=== PATIENT | female | born 1950 | race Caucasian/White ===

== ENCOUNTER 2016-08-05 12:11 | Observation (INO) ==
--- NOTE | 2016-08-05 12:24 | Emergency Department Note ---
Disposition Clinical Impression: Chest pain Qualifiers: Chest pain type: unspecified Qualified Code(s): R07.9 - Chest pain, unspecified Disposition: Admitted As Inpatient Condition: Good Referrals: Francia Diamond CNP [Primary Care Provider] - Forms: ED Satisfaction Letter Time of Disposition: 13:45 Chest Pain HPI - General Chief Complaint: ED Chest Pain Stated Complaint: chest pain// jaw pain Time Seen by Provider: 08/05/16 12:14 Source: patient Mode of arrival: wheelchair Limitations: no limitations Vital Signs Reviewed: Yes Nursing Notes Reviewed: Yes - History of Present Illness HPI Narrative: 66-year-old female history of hypertrophic cardiomyopathy with pacemaker/ defibrillator presents with right side jaw pain with associated chest pain. This occurred at [address]. Dull sensation in the right jaw that moved to the midsternum chest. Pain resolved after 15 minutes spontaneously. Patient is currently chest pain free. Denies any associated diaphoresis, shortness of breath, nausea or vomiting. She does have a history of this last over one year ago. At that time it was diagnosed as refluxing she was given Zantac. She denies any recent fever, recent illness, cough, abdominal pain. She has a strong family history of cardiac ischemic disease including her mother at the age of 30. Her bonding molder is stationed at [facility] Dr. Alejandro. Her most recent stress and heart catheterization has been over one year ago. She reports extensive cardiac history including pacemaker lead fractures, symptomatic bradycardia, symptomatic tachycardia, and various episodes of chest pain. She is a former smoker. Denies hypertension, diabetes, or hyperlipidemia. Severity scale (1-10): 0 - Related Data Home Medications Medication Instructions Recorded Confirmed Celebrex 10/26/14 10/26/14 Cyclobenzaprine 10/26/14 10/26/14 Ocuvite Eye + Multi Tablet 10/26/14 10/26/14 Verapamil 10/26/14 10/26/14 Previous Rx's Medication Instructions Recorded predniSONE [Prednisone] 20 mg PO DAILY #22 tablet 10/26/14 Allergies Allergy/AdvReac Type Severity Reaction Status Date / Time sulfamethoxazole Allergy Rash Verified 10/26/14 11:42 [From Bactrim] trimethoprim [From Bactrim] Allergy Rash Verified 10/26/14 11:42 All systems ED: reviewed and negative except as stated. Constitutional: Denies: fever, chills ENT ED: Reports: other (Right jaw) Cardiovascular: Reports: chest pain Respiratory: Denies: cough, dyspnea Gastrointestinal: Denies: abdominal pain, nausea, vomiting Genitourinary: Denies: urgency, dysuria Musculoskeletal: Denies: back pain, neck pain Integumentary: Denies: rash, abrasion Neurological: Denies: headache Chest Pain PMH - Past Medical History Medical history: Reports: cardiomyopathy, GERD, other Psychiatric history: Reports: no psych history RADIOLOGY TECH history: Reports: bilateral tubal ligation - Social History Smoking Status: Former smoker Alcohol use: Reports: none Drug use: Reports: none Physical Exam - General Limitations: no limitations General appearance: alert, in no apparent distress - Head Head exam: atraumatic, normocephalic, normal inspection - Eye Eye exam: Present: normal appearance, PERRL, EOMI - ENT ENT exam: normal exam, normal oropharynx, mucous membranes moist - Neck Neck exam: Present: normal inspection, full ROM, trachea midline. Absent: tenderness - Chest Chest inspection: Present: normal inspection, symmetric chest wall rise, other ( PACEMAKER IN LEFT CHEST WALL WITH INCISIONAL SCAR). Absent: tenderness - Respiratory Respiratory exam: Present: normal lung sounds bilaterally. Absent: respiratory distress, wheezes - Cardiovascular Cardiovascular exam: Present: regular rate, normal rhythm, normal heart sounds - Abdominal Exam Abdominal exam: Present: soft, Non-Tender, normal bowel sounds. Absent: tenderness, distention, guarding, rebound, rigidity - Extremities Exam Extremities exam: Present: normal inspection, full ROM, normal capillary refill. Absent: tenderness, pedal edema, calf tenderness - Back Exam Back exam: Present: normal inspection, full ROM. Absent: tenderness, CVA tenderness (R), CVA tenderness (L), vertebral tenderness - Neurological Exam Neurological exam: Present: alert, oriented X3, normal gait - Psychiatric Psychiatric exam: Present: normal affect, normal mood - Skin Skin exam: Present: warm, dry, intact, normal color Course Course Narrative: 66-year-old female presents with chest pain and jaw pain. Patients currently asymptomatic at this time. She does have a significant cardiac history involving her family surrounding hypertrophic cardiomyopathy. Her vital signs are stable. Heart is regular rate and rhythm. EKG is paste without any acute changes. Will get a chest pain workup started. Full dose aspirin given. Patient is in agreement with this plan. Disposition pending workup. - Reevaluation(s) Reevaluation #1: Labs unremarkable. Troponin 0.01. EKG is stable without any acute changes. Chest x-ray is unremarkable. HEART is 4. Discussed with the patient for observation for her symptoms today, she is appropriate for admission. Patient remains free at this time. Discussed with the patient for possible transfer to [place] as her bonding molder and EP bonding molder are located there. She wishes to remain here at [facility] for further treatment and management. Impression is chest pain R/O ACS with history of HOCM. Time: 13:43 - Consultations Consultation #1: Spoke with on-call hospitalist aurelio Wagoner to admit for chest pain R/O ACS, history of HOCM. No further orders at this time Time: 14:06 Vital Signs Temperature 98.1 F 08/05/16 12:14 Pulse Rate 67 08/05/16 12:14 Respiratory Rate 18 08/05/16 12:14 Blood Pressure 127/70 08/05/16 12:14 O2 Sat by Pulse Oximetry 100 08/05/16 12:14 Temperature 98.1 F 08/05/16 12:14 Pulse Rate 60 08/05/16 13:26 Respiratory Rate 18 08/05/16 13:26 Blood Pressure 124/72 08/05/16 13:26 O2 Sat by Pulse Oximetry 96 08/05/16 13:26 Chest Pain - Medical Records Medical records reviewed: Yes I reviewed the patient's medical records. - Lab Data Lab results reviewed: Yes I reviewed the patient's lab results. Result diagrams: 08/05/16 12:40 08/05/16 12:40 Lab Results 08/05/16 08/05/16 08/05/16 Range/Units 12:40 12:40 12:40 WBC 4.3 (4.3-11.1) K/mcL RBC 4.51 (3.82-4.97) M/mcL Hgb 13.3 (11.5-15.4) g/dL Hct 38.9 (35.3-44.9) % MCV 86.3 (83.0-100.0) fL MCH 29.5 (28.0-33.3) pg MCHC 34.2 (31.6-35.5) g/dL RDW 13.2 (11.5-14.5) % Plt Count 167 (140-400) K/mcL MPV 9.0 L (9.4-12.4) fL Immature Gran % 0.2 (0-4) % Seg Neutrophils % 55.1 % Lymphocytes % 32.5 % Monocytes % 10.6 % Eosinophils % 1.4 % Basophils % 0.2 % Neutrophils # 2.4 (1.6-8.9) K/mcL Lymphocytes # 1.4 (0.6-4.6) K/mcL Monocytes # 0.5 (0.0-1.3) K/mcL Eosinophils # 0.1 (0.0-0.6) K/mcL Basophils # 0.0 (0.0-0.2) K/mcL Sodium 140 (136-145) mEq/L Potassium 3.8 (3.5-4.5) mEq/L Chloride 108 (98-109) mEq/L Carbon Dioxide 24 (19-29) mEq/L BUN 15 (7-20) mg/dL Creatinine 0.74 (0.57-1.11) mg/dL Est GFR ( Amer) > 60 (> 60) Est GFR (Non-Af Amer) > 60 (> 60) BUN/Creatinine Ratio 20 (6-26) Glucose 91 (70-99) mg/dL Calculated Osmolality 290 (280-300) Calcium 9.0 (8.6-10.8) mg/dL Troponin I 0.01 (0-0.03) ng/mL - Radiology Data Radiology results reviewed: Yes I reviewed the patient's radiology results. Chest X-Ray 08/05/16 12:18 IMPRESSION: No acute cardiopulmonary process. D/ / Dennis Banda MD / Dennis Banda MD Interpreting Provider: Dennis Banda MD - EKG Data EKG attestation: Yes I reviewed and interpreted this EKG. EKG results narrative: EKG performed 1225 atrial paced rhythm 61 beats per minute. Compared to old EKG performed 11/13/2015 shows consistent similar findings. No findings consistent with Sgarbossa criteria. No acute ischemic changes. Heart Score - Score History: Slightly Suspicious EKG: Non Specific repolarisation Disturbance Age: Greater than 65 Risk Factors: 1-2 risk factors Troponin: Less than normal limit HEART Score Total: 4 Attestation Statement - Attestation Attestation: I personally interviewed and examined this patient and my medical decision- making was reviewed with the ED Resident Physician, Dr. Childers I agree with the documented findings, disposition and treatment plan as described except to the extent set forth below. Pt is a 66-year-old white female with a history of hypertrophic cardiomyopathy, who presents to the emergency Department today with complaints of gradually worsening right jaw and chest pain approximately one hour prior to arrival to the ED. Patient states she was driving at the time and began having dull right- sided jaw pain that gradually worsened and involved her anterior neck into the substernal area of her chest. Patient states that the pain lasted about 45 minutes and then spontaneously resolved. Patient denies any shortness of breath with this palpitations, did not have any discharge of her defibrillator, she did state that at one point the pain was radiating into her back but had no other associated symptoms with this pain. Patient arrives to the ED pain-free and asymptomatic with stable vital signs. I agree with patient's physical exam is documented. EKG showed no acute ST-T wave changes. Patient received aspirin and had lab evaluation as well as portal chest x-ray. All of her testing is within normal limits and patient has remained pain-free throughout her ED course. Patient remained hemodynamically stable. She with extensive cardiac history including pacemaker lead fractures, symptomatic bradycardia, symptomatic tachycardia, and various episodes of chest pain. This time considering her history I do feel patient requires admission for further evaluation of these symptoms today. We will discuss with her whether she has a preference of being admitted here in ED now for further evaluation or she would like to be transferred to [place] where her bonding molder and EPS physicians are located.
[2016-08-05 12:52] LABS: Basophils % 0.2 %; Eosinophils # 0.1 K/mcL (0.0-0.6); Eosinophils % 1.4 %; Hematocrit 38.9 % (35.3-44.9); Hemoglobin 13.3 g/dL (11.5-15.4); Immature Granulocytes % 0.2 % (0-4); Lymphocytes # 1.4 K/mcL (0.6-4.6); Lymphocytes % 32.5 %; Mean Corpuscular HGB Conc 34.2 g/dL (31.6-35.5); Mean Corpuscular Hemoglobin 29.5 pg (28.0-33.3); Mean Corpuscular Volume 86.3 fL (83.0-100.0); Monocytes # 0.5 K/mcL (0.0-1.3); Monocytes % 10.6 %; Neutrophils # 2.4 K/mcL (1.6-8.9); Platelet Count 167 K/mcL (140-400); Red Blood Count 4.51 M/mcL (3.82-4.97); Red Cell Distribution Width 13.2 % (11.5-14.5); Segmented Neutrophils % 55.1 %
[2016-08-05 13:04] LABS: BUN/Creatinine Ratio 20 (6-26); Blood Urea Nitrogen 15 mg/dL (7-20); Carbon Dioxide 24 mEq/L (19-29); Chloride 108 mEq/L (98-109); Glucose 91 mg/dL (70-99); Osmolality,Calculated 290 (280-300); Potassium 3.8 mEq/L (3.5-4.5); Sodium 140 mEq/L (136-145); eGFR For African Americans > 60 (> 60); eGFR For Non-African Americans > 60 (> 60)
[2016-08-05] MEDS ORDERED: *HR* Morphine 2 MG/ML SYRINGE IVP PRN (14:09)
[2016-08-05] MEDS ORDERED: Ondansetron 4 MG/2 ML VIAL IVP PRN (14:09)
[2016-08-05] MEDS ORDERED: Naloxone 0.4 MG/ML INJ IVP PRN (14:09)
[2016-08-05] MEDS ORDERED: Nitroglycerin 0.4 MG TAB.SUBL SL PRN (14:11)
--- NOTE | 2016-08-05 14:36 | Internal Med History&Physical ---
Date of Encounter: 08/05/16 Time of Encounter: 14:32 Assessment and Plan (1) Chest pain Current visit: Yes Status: Acute Given cardiac history will rule out ACS monitor serial TNI follow up 2D echo f/u lipid panel consider cardiology evaluation depending on echo findings pt to receive one dose of Aspirin 325mg PO and Lipitor 40mg PO Nitroglycerin 0.4mg SL prn chest pain morphine prn severe pain O2 supplementation as needed continue tele monitoring Qualifiers: Chest pain type: unspecified Qualified Code(s): R07.9 - Chest pain, unspecified (2) Hypertrophic cardiomyopathy Current visit: Yes Status: Chronic continue home medications (3) GERD (gastroesophageal reflux disease) Current visit: Yes Status: Chronic continue home meds Qualifiers: Esophagitis presence: esophagitis presence not specified Qualified Code(s) : K21.9 - Gastro-esophageal reflux disease without esophagitis (4) HTN (hypertension) Current visit: Yes Status: Chronic BP within acceptable range continue home meds Qualifiers: Hypertension type: essential hypertension Qualified Code(s): I10 - Essential (primary) hypertension (5) DVT prophylaxis Current visit: Yes Status: Acute Heparin SQ Internal Medicine - H&P: HPI Chief complaint: chest pain Admitted From: Home Plans for Post Hospital Care: Home History of present illness: Ms. Coyle is a 66 year old female with PMH Of hypertrophic cardiomyopathy s/p AICD placement, hypertension, and GERD who presents to the ER for acute onset substernal chest pain. Patient states she was in her usual state of health and was driving home today when she abruptly had right jaw pain radiating down to her substernal chest wall. She describes the pain as sharp associated with shortness of breath. Pain lasted 15minutes and resolved spontaneously. She states the same happened about a year ago when she was diagnosed with GERD. At this time she is resting comfortably in bed and reports of feeling well. Denies any chest pain, palpitations, dizziness, sob, abd pain, n/v, fever, or chills at this time. She reports of being back to normal at this time. I had a detailed discussion about patient's advance directives. Patient wishes to be DNR/DNI. Elects her as her POA and then her sister. Denies any smoking and alcohol use history. Past Med Surg Social Fam HX - Past Medical History Medical history: cardiomyopathy, GERD, other Psychiatric history: no psych history - Social History Smoking Status: Former smoker Smokeless Tobacco Status: No Alcohol use: none Drug use: none Internal Medicine - H&P: Meds Celecoxib [Celebrex] 200 mg PO DAILY 08/05/16 [History] Cyclobenzaprine [Flexeril] 10 mg PO TID PRN 08/05/16 [History] Mv-Mn/FA/Vit K1/Lycop/Lut/Zeax [Ocuvite Eye + Multi Tablet] 1 tab PO DAILY 08/05 [History] Ranitidine HCl [Zantac] 150 mg PO BID 08/05/16 [History] Verapamil ER (24 HR) [Calan SR] 120 mg PO BID 08/05/16 [History] Allergies sulfamethoxazole [From Bactrim] Allergy (Verified 10/26/14 11:42) Rash trimethoprim [From Bactrim] Allergy (Verified 10/26/14 11:42) Rash All Systems PM: A 10-system review of systems was performed and is negative for pertinent findings except as documented above in the HPI. - Constitutional Constitutional: as per HPI - Constitutional Vitals: Temp Pulse Resp BP Pulse Ox 98.1 F 60 18 126/81 96 08/05/16 12:14 08/05/16 13:26 08/05/16 14:22 08/05/16 14:22 08/05/16 13:26 General appearance: Present: cooperative, A&O X 3, pleasant, no acute distress, answers questions appropriately - Head Head exam: Present: atraumatic, normocephalic - Eye Eye exam: Present: normal appearance, conjuntiva pink, sclera anicteric - Respiratory Respiratory exam: Present: CTAB. Absent: accessory muscle use, rales, rhonchi, wheezes - Cardiovascular Cardiovascular exam: Present: RRR, +S1, +S2. Absent: diastolic murmur, gallop, rubs, systolic murmur Additional comments: left chest wall AICD in place - GI/Abdominal GI/Abdominal exam: Present: normal bowel sounds, soft, no peritoneal signs. Absent: distended, tenderness - Extremities Exam Extremities exam: Present: warm, radial pulses palpable and symetrical. Absent : calf tenderness, cyanotic, pedal edema - Neurological Exam Neurological exam: Present: alert, oriented X3 - Psychiatric Psychiatric exam: Present: normal affect, normal mood Internal Med - H&P Results - Labs CBC & Chem 7: 08/05/16 12:40 08/05/16 12:40
[2016-08-05] MEDS ORDERED: Aspirin 325 MG TABLET PO ONE (14:39)
[2016-08-05] MEDS: *HR* Heparin 5,000 UNIT/ML VIAL SQ SCH (17:02)
[2016-08-05] MEDS: Famotidine 20 MG TABLET PO SCH (21:37)
[2016-08-06 00:42] LABS: Basophils % 0.6 %; Eosinophils # 0.1 K/mcL (0.0-0.6); Eosinophils % 2.4 %; Hematocrit 39.2 % (35.3-44.9); Immature Granulocytes % 0.4 % (0-4); Lymphocytes # 2.3 K/mcL (0.6-4.6); Lymphocytes % 41.7 %; Mean Corpuscular HGB Conc 33.2 g/dL (31.6-35.5); Mean Corpuscular Hemoglobin 28.9 pg (28.0-33.3); Mean Corpuscular Volume 87.1 fL (83.0-100.0); Mean Platelet Volume 9.3 fL (9.4-12.4); Monocytes # 0.6 K/mcL (0.0-1.3); Monocytes % 11.8 %; Neutrophils # 2.3 K/mcL (1.6-8.9); Platelet Count 171 K/mcL (140-400); Red Cell Distribution Width 13.2 % (11.5-14.5); Segmented Neutrophils % 43.1 %
[2016-08-06 00:57] LABS: BUN/Creatinine Ratio 17 (6-26); Blood Urea Nitrogen 14 mg/dL (7-20); Calcium 9.2 mg/dL (8.6-10.8); Carbon Dioxide 25 mEq/L (19-29); Chloride 105 mEq/L (98-109); Chol/HDL Ratio 4.5 (0-4.9); Cholesterol 226 mg/dL (< 200); Glucose 92 mg/dL (70-99); HDL Cholesterol 50 mg/dL (40-59); LDL Cholesterol,Calculated 157 mg/dL (0-99); Magnesium 1.9 mg/dL (1.6-2.6); Osmolality,Calculated 288 (280-300); Phosphorous 4.4 mg/dL (2.3-4.7); Potassium 3.4 mEq/L (3.5-4.5); Sodium 139 mEq/L (136-145); Triglycerides 96 mg/dL (< 150); eGFR For African Americans > 60 (> 60); eGFR For Non-African Americans > 60 (> 60)
[2016-08-06] MEDS: *HR* Heparin 5,000 UNIT/ML VIAL SQ SCH (05:41)
[2016-08-06] MEDS ORDERED: Celecoxib 200 MG CAPSULE PO SCH (09:00)
[2016-08-06] MEDS ORDERED: Multivit/Ca/Min/Fe/FA 1 TAB TABLET PO SCH (09:00)
[2016-08-06] MEDS ORDERED: Aspirin 81 MG TAB.CHEW PO SCH (09:00)
[2016-08-06] MEDS: Famotidine 20 MG TABLET PO SCH (09:15)
[2016-08-06 12:28] VITALS: BP 108/67
--- NOTE | 2016-08-06 13:26 | Discharge Summary ---
Date of Encounter: 08/06/16 Time of Encounter: 13:21 - Discharge Diagnosis (1) Chest pain Priority: Primary Status: Resolved Qualifiers: Chest pain type: unspecified Qualified Code(s): R07.9 - Chest pain, unspecified (2) Hypertrophic cardiomyopathy Priority: Secondary Status: Chronic (3) GERD (gastroesophageal reflux disease) Priority: Secondary Status: Chronic Qualifiers: Esophagitis presence: esophagitis presence not specified Qualified Code(s) : K21.9 - Gastro-esophageal reflux disease without esophagitis (4) HTN (hypertension) Priority: Secondary Status: Chronic Qualifiers: Hypertension type: essential hypertension Qualified Code(s): I10 - Essential (primary) hypertension (5) DVT prophylaxis Priority: Secondary Status: Acute - Discharge Medications Prescriptions: Atorvastatin [Lipitor] 40 mg PO HS #30 tablet Home Medications: Celecoxib [Celebrex] 200 mg PO DAILY 08/05/16 [History] Cyclobenzaprine [Flexeril] 10 mg PO TID PRN 08/05/16 [History] Mv-Mn/FA/Vit K1/Lycop/Lut/Zeax [Ocuvite Eye + Multi Tablet] 1 tab PO DAILY 08/05 [History] Ranitidine HCl [Zantac] 150 mg PO BID 08/05/16 [History] Verapamil ER (24 HR) [Calan SR] 120 mg PO BID 08/05/16 [History] Atorvastatin [Lipitor] 40 mg PO HS #30 tablet 08/06/16 [Rx] Allergies/Adverse Reactions: Allergies sulfamethoxazole [From Bactrim] Allergy (Verified 10/26/14 11:42) Rash trimethoprim [From Bactrim] Allergy (Verified 10/26/14 11:42) Rash Date of admission: 08/05/16 14:10 Primary care physician: Francia Diamond CNP Discharging clinician: Petty Farr Anticipated date of discharge: 08/06/16 - Patient Status Disposition: Home, Self-Care Condition: Good Functional capacity at discharge: independent ambulation Overall status at discharge: patient is back to baseline - Discharge Instructions Follow Up With: Francia Diamond CNP [Primary Care Provider] - Additional Instructions: Please follow up with your primary care physician and machine operations supervisor within one week after your discharge from the hospital. Please ask your primary care physician about a Gastroenterology referral for further evaluation of your dysphagia (difficulty swallowing). Lipitor 40mg at bedtime has been added to your home medications. Please take this medication as prescribed. Closely monitor your blood pressure at home. Hold your blood pressure medication for SBP<120. Inform your primary care physician of your home BP readings. Resume all other medications as prescribed by your primary care physician. - Diet and Activity Activity: resume usual activities as tolerated Diet: low fat, low cholesterol, low salt diet Hospital course: Ms. Coyle is a 66 year old female with PMH Of hypertrophic cardiomyopathy s/p AICD placement, hypertension, and GERD who was admitted for evaluation of chest pain and rule out ACS. Upon arrival to the ER, she complete resolution of her chest pain. She was found to have elevated LDL level and states she has history of hyperlipidemia for which her PCP has been trying to get her to be on a statin. She is in agreement to starting statin therapy at this time. Her serial TNI were negative and her echocardiogram showed LVEF of 55% with normal LV size and systolic function, mild diastolic dysfunction was reported. Patient is clinically asymptomatic and in no distress. She reports of dysphagia to solid food intermittently without any alarming symptoms for which outpatient GI evaluation was recommended. At this time patient is hemodynamically stable and will be discharged to home with follow up with PCP and cardiology. Patient and demonstrate understanding of her diagnosis and agree with the discharge care and plan. - Time Spent with Patient Total time spent providing and/or coordinating discharge services: Less than 30 minutes - Constitutional Vitals: Temp Pulse Resp BP Pulse Ox 98.1 F 60 17 108/67 95 08/06/16 12:16 08/06/16 12:16 08/06/16 12:16 08/06/16 12:16 08/06/16 12:16 General appearance: Present: cooperative, A&O X 3, pleasant, no acute distress, answers questions appropriately - Head Head exam: Present: atraumatic, normocephalic - Eye Eye exam: Present: normal appearance, conjuntiva pink, sclera anicteric - Cardiovascular Cardiovascular exam: Present: RRR, +S1, +S2. Absent: diastolic murmur, gallop, rubs, systolic murmur - GI/Abdominal GI/Abdominal exam: Present: normal bowel sounds, soft, no peritoneal signs. Absent: distended, tenderness - Extremities Exam Extremities exam: Present: warm, radial pulses palpable and symetrical. Absent : calf tenderness, cyanotic, pedal edema - Neurological Exam Neurological exam: Present: alert, oriented X3 - Psychiatric Psychiatric exam: Present: normal affect, normal mood
--- NOTE | 2016-08-06 14:35 | Electrocardiograph Report ---
[address] [address] Test Date: 2016-08-05 Pat Name: Mahnaz Coyle Department: 105 Room: 3B45 Gender: F Tractor Expert: : [id number] Requested By: Tony Childers Order Number: [id number] Reading MD: Sania Villafana Measurements Intervals [place] Rate: 61 P: 95 SD: 240 QRS: -44 QRSD: 134 T: -3 QT: 436 QTc: 440 Interpretive Statements ELECTRONIC ATRIAL PACEMAKER LEFT AXIS DEVIATION RIGHT BUNDLE BRANCH BLOCK Electronically Signed On 08-06-2016 14:33:16 EDT by Sania Villafana
== END 2016-08-06 14:27 | disposition home or self-care (01) ==
LOC: EMEROO 12:11 → 3BNU 12:11
PROVIDERS: ADMIT Internal Medicine; ATTEND Registered Nurse

== ENCOUNTER 2020-05-03 23:11 | Inpatient (IN) ==
[2020-05-03] MEDS ORDERED: Ketorolac 15 MG/ML VIAL IVP ONE (23:58)
[2020-05-03] MEDS ORDERED: Isovue-370 500 ML BOTTLE IVP ONE (23:58)
[2020-05-04 00:19] LABS: Basophils % 0.3 %; Eosinophils # 0.1 K/mcL (0.0-0.6); Eosinophils % 0.5 %; Hematocrit 32.9 % (35.3-44.9); Hemoglobin 10.3 g/dL (11.5-15.4); Immature Granulocytes % 0.8 % (0-4); Lymphocytes # 2.9 K/mcL (0.6-4.6); Lymphocytes % 19.3 %; Mean Corpuscular HGB Conc 31.3 g/dL (31.6-35.5); Mean Corpuscular Hemoglobin 31.6 pg (28.0-33.3); Mean Corpuscular Volume 100.9 fL (83.0-100.0); Mean Platelet Volume 9.4 fL (9.4-12.4); Monocytes % 6.7 %; Neutrophils # 10.9 K/mcL (1.6-8.9); Platelet Count 258 K/mcL (140-400); Red Blood Count 3.26 M/mcL (3.82-4.97); Red Cell Distribution Width 14.6 % (11.5-14.5); Segmented Neutrophils % 72.4 %
[2020-05-04 00:21] LABS: Basophils # 0.1 K/mcL (0.0-0.2); White Blood Count 15.1 K/mcL (4.3-11.1)
[2020-05-04 00:30] LABS: BUN/Creatinine Ratio 28 (6-26); Blood Urea Nitrogen 22 mg/dL (8-23); Calcium 9.2 mg/dL (8.6-10.3); Carbon Dioxide 23 mEq/L (23-29); Chloride 105 mEq/L (98-107); Glucose 91 mg/dL (70-105); Osmolality,Calculated 289 (280-300); Potassium 3.5 mEq/L (3.5-5.1); Sodium 138 mEq/L (136-145); eGFR For African Americans > 60 (> 60); eGFR For Non-African Americans > 60 (> 60)
[2020-05-04 00:31] LABS: Troponin I < 0.03 ng/mL (< 0.04)
[2020-05-04 00:56] LABS: Alanine Aminotransferase 14 Units/L (7-52); Albumin 4.4 g/dL (3.5-5.7); Albumin/Globulin Ratio 2.3 (1.1-2.2); Alkaline Phosphatase 85 Units/L (34-104); Aspartate Amino Transferase 15 Units/L (13-39); Bilirubin,Direct 0.2 mg/dL (0.0-0.2); Bilirubin,Indirect 0.8 mg/dL (0.0-1.0); Globulin 1.9 g/dL (2.4-3.5); Lipase 15 Units/L (11-82); Total Protein 6.3 g/dL (6.4-8.9)
[2020-05-04] MEDS ORDERED: 0.9 % Sodium Chloride 1,000 ML IVC ONE ×3 (01:11→14:14)
[2020-05-04] MEDS ORDERED: Naloxone 0.4 MG/ML INJ IVP PRN (03:45)
[2020-05-04] MEDS ORDERED: Melatonin 3 MG TABLET PO STA (03:45)
[2020-05-04 03:47] LABS: Adenovirus Not Detected (Not Detect); Bordetella Pertussis Not Detected (Not Detect); Chlamydophila pneumoniae Not Detected (Not Detect); Coronavirus 229E Not Detected (Not Detect); Coronavirus HKU1 Not Detected (Not Detect); Coronavirus NL63 Not Detected (Not Detect); Coronavirus OC43 Not Detected (Not Detect); Human Metapneumovirus Not Detected (Not Detect); Human Rhinovirus/Enterovirus Not Detected (Not Detect); Influenza A Subtype 2009 H1 Not Detected (Not Detect); Influenza B Not Detected (Not Detect); Mycoplasma pneumoniae Not Detected (Not Detect); Parainfluenza Virus 1 Not Detected (Not Detect); Parainfluenza Virus 2 Not Detected (Not Detect); Parainfluenza Virus 3 Not Detected (Not Detect); Parainfluenza Virus 4 Not Detected (Not Detect); Respiratory Syncytial Virus Not Detected (Not Detect); SARS-CoV-2 Not Detected (Not Detect)
[2020-05-04] MEDS ORDERED: Acetaminophen 325 MG TABLET PO PRN (04:46)
[2020-05-04] MEDS ORDERED: Melatonin 3 MG TABLET PO PRN (04:46)
[2020-05-04] MEDS ORDERED: *HR* HYDROcodone/Acet 5/325 mg TABLET PO PRN ×2 (04:46→15:05)
[2020-05-04] MEDS ORDERED: Ondansetron ODT 4 MG TAB.RAPDIS SL PRN (04:46)
[2020-05-04] MEDS ORDERED: Azithromycin 500 MG in 0.9 % Sodium Chloride 250 ML IVPB SCH (07:00)
[2020-05-04] MEDS: Apixaban 2.5 MG TABLET PO SCH ×2 (08:23→20:10)
[2020-05-04] MEDS ORDERED: cefTRIAXone 1,000 MG in Water for inj. (sterile) 10 ML IVP SCH (09:00)
[2020-05-04] MEDS ORDERED: 0.9 % Sodium Chloride 1,000 ML ONE (14:10)
[2020-05-04] MEDS ORDERED: Acetaminophen IV 1,000 MG/100 ML BAG IVPB ONE (14:15)
[2020-05-04 15:06] LABS: Hematocrit 28.1 % (35.3-44.9); Hemoglobin 8.8 g/dL (11.5-15.4)
[2020-05-04] MEDS ORDERED: Ipratropium Neb 0.5 MG NEBULIZER IH PRN (15:17)
[2020-05-04 15:29] LABS: Bilirubin,Urine Negative (Negative); Blood,Urine Trace (Negative); Clarity,Urine Clear (Clear); Color,Urine Light-Orange (Yellow); Glucose,Urine (UA) Normal (Normal); Ketones,Urine Negative (Negative); Leukocyte Esterase,Urine Trace (Negative); Mucus,Urine Few per lpf (None-Few); Nitrite,Urine Negative (Negative); PH,Urine 6.5 pH Units (5.0-8.0); Protein,Urine 30 mg/dL (Neg-Trace); Specific Gravity,Urine > 1.030 (1.010-1.025); Squamous Epithelial Cell,Urine Few per hpf (None-Few); Urobilinogen,Urine Normal (Normal)
[2020-05-04] MEDS ORDERED: Albumin Human 5% 12.5 GM/250 ML IV.SOLN IVPB ONE (16:00)
[2020-05-04] MEDS ORDERED: Ketorolac 15 MG/ML VIAL IVP ONE (16:25)
[2020-05-04] MEDS: Ipratropium/Albuterol Neb 3 ML IH SCH ×2 (16:35→20:44)
[2020-05-04] MEDS: Piperacillin/Tazobactam 3.375 GM in 0.9 % Sodium Chloride Mini Bag 100 ML IVPB SCH ×2 (17:45→23:53)
[2020-05-04] MEDS ORDERED: Norepinephrine 4 MG/254 ML IV.SOLN IVC SCH (18:00)
[2020-05-04] MEDS: levoFLOXacin 750 MG/150 ML 750 MG/150 ML BAG IVPB SCH (18:03)
[2020-05-04] MEDS ORDERED: Perflutren Lipid Microsphere 1.3 ML in 0.9 % Sodium Chloride 8.7 ML IVP PRN (18:48)
[2020-05-04] MEDS: Hydrocortisone Sodium Succ 100 MG/2 ML VIAL IVP SCH ×2 (20:10→23:53)
[2020-05-05] MEDS: Ipratropium/Albuterol Neb 3 ML IH SCH ×7 (00:33→23:50)
[2020-05-05 03:36] LABS: Basophils % 0.1 %; Hematocrit 28.1 % (35.3-44.9); Hemoglobin 8.8 g/dL (11.5-15.4); Immature Granulocytes % 2.5 % (0-4); Lymphocytes # 1.1 K/mcL (0.6-4.6); Lymphocytes % 4.4 %; Mean Corpuscular HGB Conc 31.3 g/dL (31.6-35.5); Mean Corpuscular Hemoglobin 32.1 pg (28.0-33.3); Mean Corpuscular Volume 102.6 fL (83.0-100.0); Mean Platelet Volume 9.2 fL (9.4-12.4); Monocytes # 0.9 K/mcL (0.0-1.3); Monocytes % 3.5 %; Neutrophils # 22.2 K/mcL (1.6-8.9); Platelet Count 178 K/mcL (140-400); Red Blood Count 2.74 M/mcL (3.82-4.97); Red Cell Distribution Width 15.1 % (11.5-14.5); Segmented Neutrophils % 89.5 %
[2020-05-05 03:44] LABS: VBG Ionized Calcium 1.03 mmol/L (1.15-1.35)
[2020-05-05 03:45] LABS: White Blood Count 24.8 K/mcL (4.3-11.1)
[2020-05-05 03:56] LABS: Alanine Aminotransferase 9 Units/L (7-52); Albumin 3.4 g/dL (3.5-5.7); Albumin/Globulin Ratio 1.8 (1.1-2.2); Alkaline Phosphatase 60 Units/L (34-104); Aspartate Amino Transferase 11 Units/L (13-39); BUN/Creatinine Ratio 26 (6-26); Bilirubin,Direct 0.5 mg/dL (0.0-0.2); Bilirubin,Indirect 1.4 mg/dL (0.0-1.0); Bilirubin,Total 1.9 mg/dL (0.3-1.0); Blood Urea Nitrogen 19 mg/dL (8-23); Calcium 7.8 mg/dL (8.6-10.3); Carbon Dioxide 21 mEq/L (23-29); Chloride 106 mEq/L (98-107); Globulin 1.9 g/dL (2.4-3.5); Glucose 117 mg/dL (70-105); Magnesium 1.6 mg/dL (1.6-2.6); Osmolality,Calculated 285 (280-300); Phosphorous 2.8 mg/dL (2.7-4.5); Potassium 3.1 mEq/L (3.5-5.1); Sodium 136 mEq/L (136-145); Total Protein 5.3 g/dL (6.4-8.9); eGFR For African Americans > 60 (> 60); eGFR For Non-African Americans > 60 (> 60)
[2020-05-05] MEDS: Acetaminophen 325 MG TABLET PO PRN ×2 (03:59→19:48)
[2020-05-05] MEDS ORDERED: Calcium Gluconate 1gm/50mL 1 GM/50 ML BAG IVPB PRN (04:16)
[2020-05-05] MEDS ORDERED: predniSONE 10 MG TABLET PO SCH (04:43)
[2020-05-05] MEDS ORDERED: Potassium Chloride 40 MEQ/200 ML BAG IVPB PRN (04:45)
[2020-05-05] MEDS: Hydrocortisone Sodium Succ 100 MG/2 ML VIAL IVP SCH ×4 (05:31→23:41)
[2020-05-05] MEDS: Potassium Phosphate 44 MEQ in 0.9 % Sodium Chloride 250 ML IVPB PRN ×2 (06:34→21:36)
[2020-05-05] MEDS: levoFLOXacin 750 MG/150 ML 750 MG/150 ML BAG IVPB SCH (07:52)
[2020-05-05] MEDS: Piperacillin/Tazobactam 3.375 GM in 0.9 % Sodium Chloride Mini Bag 100 ML IVPB SCH (07:52)
[2020-05-05] MEDS ORDERED: Vasopressin 40 UNIT in D5% in Water 100 ML IVC SCH (10:00)
[2020-05-05] MEDS ORDERED: *HR* Heparin 5,000 UNIT/ML VIAL IVP PRN (10:40)
[2020-05-05] MEDS ORDERED: Heparin 25,000UNIT/250ML 1/2NS 25,000 UNIT/250 ML IV.SOLN IVC SCH (10:45)
[2020-05-05] MEDS ORDERED: cefTRIAXone 2,000 MG in 0.9 % Sodium Chloride Mini Bag 100 ML IVPB SCH ×2 (11:00→18:00)
[2020-05-05] MEDS: cefTRIAXone 2,000 MG in Water for inj. (sterile) 20 ML IVP SCH ×2 (11:06→22:13)
[2020-05-05 12:33] LABS: Heparin anti-factor XA UFH 0.48 IU/mL (0.30-0.70); INR 2.2; Prothrombin Time 24.6 Seconds (9.4-12.1)
[2020-05-05 12:35] LABS: Activated Partial Thrombo Time 31.6 Seconds (26.0-36.0)
[2020-05-05 13:01] LABS: BUN/Creatinine Ratio 25 (6-26); Blood Urea Nitrogen 18 mg/dL (8-23); Calcium 8.4 mg/dL (8.6-10.3); Carbon Dioxide 18 mEq/L (23-29); Chloride 107 mEq/L (98-107); Glucose 127 mg/dL (70-105); Magnesium 2.3 mg/dL (1.6-2.6); Osmolality,Calculated 287 (280-300); Potassium 3.8 mEq/L (3.5-5.1); Sodium 137 mEq/L (136-145); eGFR For African Americans > 60 (> 60); eGFR For Non-African Americans > 60 (> 60)
[2020-05-05 13:28] LABS: Hematocrit 28.6 % (35.3-44.9); Mean Platelet Volume 9.9 fL (9.4-12.4); Red Cell Distribution Width 15.1 % (11.5-14.5)
[2020-05-05 13:30] LABS: Hemoglobin 8.9 g/dL (11.5-15.4); Mean Corpuscular HGB Conc 31.1 g/dL (31.6-35.5); Mean Corpuscular Hemoglobin 31.7 pg (28.0-33.3); Mean Corpuscular Volume 101.8 fL (83.0-100.0); Platelet Count 204 K/mcL (140-400); Red Blood Count 2.81 M/mcL (3.82-4.97); White Blood Count 26.4 K/mcL (4.3-11.1)
[2020-05-05 18:47] LABS: VBG Ionized Calcium 1.17 mmol/L (1.15-1.35)
[2020-05-05 18:59] LABS: Phosphorous 1.9 mg/dL (2.7-4.5)
[2020-05-05 19:09] LABS: Potassium 3.3 mEq/L (3.5-5.1)
[2020-05-05] MEDS: Phenylephrine 10 MG in 0.9 % Sodium Chloride 250 ML IVC SCH (19:36)
[2020-05-05] MEDS: Heparin 25,000UNIT/250ML 1/2NS 25,000 UNIT/250 ML IV.SOLN IVC SCH (19:41)
[2020-05-05] MEDS: *HR* Heparin 5,000 UNIT/ML VIAL IVP PRN (19:47)
[2020-05-05] MEDS ORDERED: Artificial Tears SOLN 15 ML BOTTLE BOTH EYES PRN (20:24)
[2020-05-05] MEDS: Sennosides/Docusate Sodium TABLET PO SCH (20:28)
[2020-05-06 03:40] LABS: Hematocrit 25.1 % (35.3-44.9); Hemoglobin 7.8 g/dL (11.5-15.4); Immature Granulocytes % 2.7 % (0-4); Lymphocytes # 0.9 K/mcL (0.6-4.6); Lymphocytes % 4.2 %; Mean Corpuscular HGB Conc 31.1 g/dL (31.6-35.5); Mean Corpuscular Hemoglobin 31.2 pg (28.0-33.3); Mean Corpuscular Volume 100.4 fL (83.0-100.0); Mean Platelet Volume 9.5 fL (9.4-12.4); Monocytes # 0.9 K/mcL (0.0-1.3); Monocytes % 4.4 %; Neutrophils # 18.3 K/mcL (1.6-8.9); Nucleated Red Blood Cells 0.1 /100 WBC (0); Platelet Count 185 K/mcL (140-400); Red Cell Distribution Width 14.9 % (11.5-14.5); Segmented Neutrophils % 88.7 %; White Blood Count 20.6 K/mcL (4.3-11.1)
[2020-05-06 04:03] LABS: Magnesium 2.4 mg/dL (1.6-2.6); Phosphorous 2.6 mg/dL (2.7-4.5)
[2020-05-06] MEDS: *HR* Heparin 5,000 UNIT/ML VIAL IVP PRN (04:11)
[2020-05-06 04:16] LABS: BUN/Creatinine Ratio 26 (6-26); Blood Urea Nitrogen 18 mg/dL (8-23); Calcium 8.2 mg/dL (8.6-10.3); Carbon Dioxide 23 mEq/L (23-29); Chloride 111 mEq/L (98-107); Glucose 150 mg/dL (70-105); Osmolality,Calculated 291 (280-300); Potassium 4.2 mEq/L (3.5-5.1); Sodium 138 mEq/L (136-145); eGFR For African Americans > 60 (> 60); eGFR For Non-African Americans > 60 (> 60)
[2020-05-06] MEDS: Ipratropium/Albuterol Neb 3 ML IH SCH ×6 (04:42→23:27)
[2020-05-06] MEDS ORDERED: Vancomycin 1,250 MG/262.5 ML IV.SOLN IVPB SCH (05:00)
[2020-05-06] MEDS: Hydrocortisone Sodium Succ 100 MG/2 ML VIAL IVP SCH (05:24)
[2020-05-06 06:15] LABS: VBG Ionized Calcium 1.18 mmol/L (1.15-1.35)
[2020-05-06] MEDS: Sennosides/Docusate Sodium TABLET PO SCH ×2 (08:21→20:22)
[2020-05-06] MEDS: Phenylephrine 10 MG in 0.9 % Sodium Chloride 250 ML IVC SCH (10:10)
[2020-05-06] MEDS: cefTRIAXone 2,000 MG in Water for inj. (sterile) 20 ML IVP SCH (10:36)
[2020-05-06] MEDS ORDERED: Heparin 25,000UNIT/250ML 1/2NS 25,000 UNIT/250 ML IV.SOLN IVC SCH ×3 (11:29→14:39)
[2020-05-06] MEDS: Heparin 25,000UNIT/250ML 1/2NS 25,000 UNIT/250 ML IV.SOLN IVC SCH (12:41)
[2020-05-06] MEDS ORDERED: Acetaminophen 325 MG TABLET PO PRN (14:39)
[2020-05-06] MEDS ORDERED: Ondansetron ODT 4 MG TAB.RAPDIS SL PRN (14:39)
[2020-05-06] MEDS ORDERED: Artificial Tears SOLN 15 ML BOTTLE BOTH EYES PRN (14:39)
[2020-05-06] MEDS ORDERED: Naloxone 0.4 MG/ML INJ IVP PRN (14:39)
[2020-05-06] MEDS ORDERED: predniSONE 20 MG TABLET PO SCH ×2 (14:39→15:00)
[2020-05-06] MEDS ORDERED: Ipratropium Neb 0.5 MG NEBULIZER IH PRN (14:39)
[2020-05-06] MEDS ORDERED: *HR* HYDROcodone/Acet 5/325 mg TABLET PO PRN (14:39)
[2020-05-06] MEDS ORDERED: *HR* Heparin 5,000 UNIT/ML VIAL IVP PRN ×2 (14:39)
[2020-05-06] MEDS ORDERED: Melatonin 3 MG TABLET PO PRN (14:39)
[2020-05-06] MEDS: predniSONE 20 MG TABLET PO SCH (16:08)
[2020-05-06] MEDS: Vancomycin 1,250 MG/262.5 ML IV.SOLN IVPB SCH (18:15)
[2020-05-06] MEDS: Acyclovir 200 MG CAPSULE PO SCH (20:21)
[2020-05-06] MEDS: Gabapentin 300 MG CAPSULE PO SCH (20:21)
[2020-05-06] MEDS ORDERED: cefTRIAXone 2,000 MG in Water for inj. (sterile) 20 ML IVP SCH (23:00)
[2020-05-07 01:08] LABS: VBG Ionized Calcium 1.19 mmol/L (1.15-1.35)
[2020-05-07 01:09] LABS: Basophils # 0.1 K/mcL (0.0-0.2); Basophils % 0.2 %; Eosinophils % 0.2 %; Hematocrit 26.9 % (35.3-44.9); Hemoglobin 8.1 g/dL (11.5-15.4); Immature Granulocytes % 2.7 % (0-4); Lymphocytes # 1.3 K/mcL (0.6-4.6); Lymphocytes % 6.3 %; Mean Corpuscular HGB Conc 30.1 g/dL (31.6-35.5); Mean Corpuscular Hemoglobin 30.7 pg (28.0-33.3); Mean Corpuscular Volume 101.9 fL (83.0-100.0); Mean Platelet Volume 9.5 fL (9.4-12.4); Monocytes # 0.9 K/mcL (0.0-1.3); Neutrophils # 18.3 K/mcL (1.6-8.9); Platelet Count 275 K/mcL (140-400); Red Blood Count 2.64 M/mcL (3.82-4.97); Red Cell Distribution Width 15.4 % (11.5-14.5); Segmented Neutrophils % 86.6 %; White Blood Count 21.1 K/mcL (4.3-11.1)
[2020-05-07 01:25] LABS: Magnesium 2.3 mg/dL (1.6-2.6); Phosphorous 2.5 mg/dL (2.7-4.5)
[2020-05-07 01:27] LABS: BUN/Creatinine Ratio 31 (6-26); Blood Urea Nitrogen 24 mg/dL (8-23); Calcium 8.7 mg/dL (8.6-10.3); Carbon Dioxide 19 mEq/L (23-29); Chloride 109 mEq/L (98-107); Glucose 131 mg/dL (70-105); Osmolality,Calculated 292 (280-300); Sodium 138 mEq/L (136-145); eGFR For African Americans > 60 (> 60); eGFR For Non-African Americans > 60 (> 60)
[2020-05-07 02:35] LABS: A.galactomannan Ag Index 0.05
[2020-05-07] MEDS: Ipratropium/Albuterol Neb 3 ML IH SCH ×3 (03:54→11:06)
[2020-05-07] MEDS: Vancomycin 1,250 MG/262.5 ML IV.SOLN IVPB SCH (05:26)
[2020-05-07] MEDS: Acyclovir 200 MG CAPSULE PO SCH (08:47)
[2020-05-07] MEDS: predniSONE 20 MG TABLET PO SCH (08:47)
[2020-05-07] MEDS: Sennosides/Docusate Sodium TABLET PO SCH (08:47)
[2020-05-07] MEDS: Gabapentin 300 MG CAPSULE PO SCH (08:47)
[2020-05-07 09:59] VITALS: BP 129/75
[2020-05-07] MEDS ORDERED: Ipratropium/Albuterol Neb 3 ML IH PRN (11:30)
[2020-05-07] MEDS ORDERED: cefTRIAXone 2,000 MG in Water for inj. (sterile) 20 ML IVP SCH (12:00)
[2020-05-07] MEDS ORDERED: Apixaban 5 MG TABLET PO SCH (12:30)
== END 2020-05-07 12:46 | disposition home or self-care (01) | DRG 871 ==
LOC: EMEROOARM 23:11 → 3NENU 23:11 → SUATTDRO 05-04 04:07 → 3NENU 05-04 04:58 → ICNU 05-04 16:16 → 3ANU 05-06 14:02
PROVIDERS: ADMIT Internal Medicine; ATTEND Pediatrics

== ENCOUNTER 2020-05-09 10:20 | Inpatient (IN) ==
[2020-05-09 11:20] LABS: Hemoglobin 9.4 g/dL (11.5-15.4); Mean Corpuscular HGB Conc 31.3 g/dL (31.6-35.5); Mean Corpuscular Hemoglobin 31.2 pg (28.0-33.3); Mean Corpuscular Volume 99.7 fL (83.0-100.0); Mean Platelet Volume 9.1 fL (9.4-12.4); Nucleated Red Blood Cells 2.1 /100 WBC (0); Platelet Count 360 K/mcL (140-400); Red Blood Count 3.01 M/mcL (3.82-4.97); White Blood Count 15.7 K/mcL (4.3-11.1)
[2020-05-09] MEDS ORDERED: Isovue-370 500 ML BOTTLE IVP ONE (11:23)
[2020-05-09 11:28] LABS: INR 1.3; Prothrombin Time 14.9 Seconds (9.4-12.1)
[2020-05-09 11:30] LABS: Activated Partial Thrombo Time 30.6 Seconds (26.0-36.0)
[2020-05-09] MEDS ORDERED: levoFLOXacin 750 MG/150 ML 750 MG/150 ML BAG IVPB ONE (11:30)
[2020-05-09 11:40] LABS: Basophils # 0.2 K/mcL (0.0-0.2); Lymphocytes # 3.8 K/mcL (0.6-4.6); Neutrophils # 9.4 K/mcL (1.6-8.9)
[2020-05-09 11:41] LABS: Platelet Estimate Normal (Normal); Polychromasia 1+ (Not Present)
[2020-05-09 11:42] LABS: Alanine Aminotransferase 41 Units/L (7-52); Albumin 3.7 g/dL (3.5-5.7); Albumin/Globulin Ratio 1.5 (1.1-2.2); Alkaline Phosphatase 90 Units/L (34-104); Aspartate Amino Transferase 11 Units/L (13-39); BUN/Creatinine Ratio 22 (6-26); Bilirubin,Direct 0.2 mg/dL (0.0-0.2); Bilirubin,Indirect 0.6 mg/dL (0.0-1.0); Bilirubin,Total 0.8 mg/dL (0.3-1.0); Blood Urea Nitrogen 16 mg/dL (8-23); Carbon Dioxide 24 mEq/L (23-29); Chloride 104 mEq/L (98-107); Globulin 2.5 g/dL (2.4-3.5); Glucose 92 mg/dL (70-105); Osmolality,Calculated 287 (280-300); Potassium 3.3 mEq/L (3.5-5.1); Sodium 138 mEq/L (136-145); Total Protein 6.2 g/dL (6.4-8.9); eGFR For African Americans > 60 (> 60); eGFR For Non-African Americans > 60 (> 60)
[2020-05-09 11:43] LABS: Troponin I < 0.03 ng/mL (< 0.04)
[2020-05-09 11:46] LABS: Reactive Lymphocytes Present (Not Present)
[2020-05-09] MEDS ORDERED: Vancomycin 1,250 MG/262.5 ML IV.SOLN IVPB ONE (12:00)
[2020-05-09 12:56] LABS: Adenovirus Not Detected (Not Detect); Bordetella Pertussis Not Detected (Not Detect); Chlamydophila pneumoniae Not Detected (Not Detect); Coronavirus 229E Not Detected (Not Detect); Coronavirus HKU1 Not Detected (Not Detect); Coronavirus NL63 Not Detected (Not Detect); Coronavirus OC43 Not Detected (Not Detect); Human Metapneumovirus Not Detected (Not Detect); Human Rhinovirus/Enterovirus Not Detected (Not Detect); Influenza A Subtype 2009 H1 Not Detected (Not Detect); Influenza B Not Detected (Not Detect); Mycoplasma pneumoniae Not Detected (Not Detect); Parainfluenza Virus 1 Not Detected (Not Detect); Parainfluenza Virus 2 Not Detected (Not Detect); Parainfluenza Virus 3 Not Detected (Not Detect); Parainfluenza Virus 4 Not Detected (Not Detect); Respiratory Syncytial Virus Not Detected (Not Detect); SARS-CoV-2 Not Detected (Not Detect)
[2020-05-09] MEDS ORDERED: Bumetanide 1 MG/4 ML VIAL IVP ONE (13:22)
[2020-05-09] MEDS ORDERED: Naloxone 0.4 MG/ML INJ IVP PRN (14:14)
[2020-05-09] MEDS ORDERED: Gabapentin 300 MG CAPSULE PO SCH (15:00)
[2020-05-09] MEDS: Ipratropium/Albuterol Neb 3 ML IH SCH ×3 (16:10→23:39)
[2020-05-09] MEDS: Gabapentin 300 MG CAPSULE PO SCH (20:33)
[2020-05-10] MEDS: Ipratropium/Albuterol Neb 3 ML IH SCH ×6 (03:47→23:21)
[2020-05-10 05:47] LABS: Hematocrit 28.8 % (35.3-44.9); Hemoglobin 8.7 g/dL (11.5-15.4); Mean Corpuscular HGB Conc 30.2 g/dL (31.6-35.5); Mean Corpuscular Hemoglobin 30.7 pg (28.0-33.3); Mean Corpuscular Volume 101.8 fL (83.0-100.0); Mean Platelet Volume 8.9 fL (9.4-12.4); Platelet Count 300 K/mcL (140-400); Red Blood Count 2.83 M/mcL (3.82-4.97); Red Cell Distribution Width 15.5 % (11.5-14.5); White Blood Count 11.3 K/mcL (4.3-11.1)
[2020-05-10 06:02] LABS: Anisocytosis 1+ (Not Present); Lymphocytes # 3.4 K/mcL (0.6-4.6); Macrocytosis Present (Not Present); Monocytes # 1.1 K/mcL (0.0-1.3); Neutrophils # 5.4 K/mcL (1.6-8.9); Platelet Estimate Normal (Normal); Polychromasia 1+ (Not Present); Reactive Lymphocytes Present (Not Present)
[2020-05-10 06:06] LABS: BUN/Creatinine Ratio 16 (6-26); Blood Urea Nitrogen 12 mg/dL (8-23); Calcium 8.6 mg/dL (8.6-10.3); Carbon Dioxide 25 mEq/L (23-29); Chloride 104 mEq/L (98-107); Glucose 101 mg/dL (70-105); Magnesium 1.8 mg/dL (1.6-2.6); Osmolality,Calculated 284 (280-300); Phosphorous 3.8 mg/dL (2.7-4.5); Potassium 3.7 mEq/L (3.5-5.1); Sodium 137 mEq/L (136-145); eGFR For African Americans > 60 (> 60); eGFR For Non-African Americans > 60 (> 60)
[2020-05-10] MEDS: cefTRIAXone 1,000 MG in 0.9 % Sodium Chloride Mini Bag 100 ML IVPB SCH (09:44)
[2020-05-10] MEDS: Multivit/Ca/Min/Fe/FA 1 TAB TABLET PO SCH (09:46)
[2020-05-10] MEDS: predniSONE 20 MG TABLET PO SCH (09:47)
[2020-05-10] MEDS: Gabapentin 300 MG CAPSULE PO SCH ×2 (09:48→21:22)
[2020-05-10] MEDS: *HR* HYDROcodone/Acet 5/325 mg TABLET PO PRN ×2 (09:49→21:39)
[2020-05-10] MEDS: Ondansetron 4 MG/2 ML VIAL IVP PRN ×2 (09:51→21:27)
[2020-05-10] MEDS ORDERED: Bumetanide 1 MG/4 ML VIAL IVP ONE (15:00)
[2020-05-10 17:04] LABS: Total Protein,Pleural Fluid 3.5 g/dL
[2020-05-10] MEDS: Apixaban 2.5 MG TABLET PO SCH (21:23)
[2020-05-11 00:13] LABS: Appearance of Pleural Fl Hazy (Clear)
[2020-05-11 00:15] LABS: RBC,Pleural Fluid 8000 RBC/mcL
[2020-05-11 00:16] LABS: Basophils,Pleural Fluid 0 %; Eosinophils,Pleural Fluid 0 %
[2020-05-11 02:58] LABS: Basophils % 0.3 %; Eosinophils % 0.6 %; Hematocrit 28.4 % (35.3-44.9); Hemoglobin 8.5 g/dL (11.5-15.4); Immature Granulocytes % 2.8 % (0-4); Lymphocytes % 17.8 %; Mean Corpuscular HGB Conc 29.9 g/dL (31.6-35.5); Mean Corpuscular Hemoglobin 30.6 pg (28.0-33.3); Mean Corpuscular Volume 102.2 fL (83.0-100.0); Mean Platelet Volume 9.3 fL (9.4-12.4); Monocytes % 14.3 %; Neutrophils # 7.2 K/mcL (1.6-8.9); Platelet Count 319 K/mcL (140-400); Red Blood Count 2.78 M/mcL (3.82-4.97); Segmented Neutrophils % 64.2 %; White Blood Count 11.2 K/mcL (4.3-11.1)
[2020-05-11 02:59] LABS: Eosinophils # 0.1 K/mcL (0.0-0.6); Monocytes # 1.6 K/mcL (0.0-1.3); Nucleated Red Blood Cells 0.3 /100 WBC (0)
[2020-05-11 03:13] LABS: BUN/Creatinine Ratio 18 (6-26); Blood Urea Nitrogen 18 mg/dL (8-23); Calcium 8.7 mg/dL (8.6-10.3); Carbon Dioxide 23 mEq/L (23-29); Chloride 102 mEq/L (98-107); Glucose 139 mg/dL (70-105); Osmolality,Calculated 286 (280-300); Potassium 3.9 mEq/L (3.5-5.1); Sodium 136 mEq/L (136-145); eGFR For African Americans > 60 (> 60); eGFR For Non-African Americans 55 (> 60)
[2020-05-11] MEDS: Ipratropium/Albuterol Neb 3 ML IH SCH ×6 (03:16→23:33)
[2020-05-11] MEDS: Multivit/Ca/Min/Fe/FA 1 TAB TABLET PO SCH (09:31)
[2020-05-11] MEDS: predniSONE 20 MG TABLET PO SCH (09:31)
[2020-05-11] MEDS: Apixaban 2.5 MG TABLET PO SCH ×2 (09:31→20:55)
[2020-05-11] MEDS: cefTRIAXone 1,000 MG in 0.9 % Sodium Chloride Mini Bag 100 ML IVPB SCH (09:32)
[2020-05-11] MEDS: Gabapentin 300 MG CAPSULE PO SCH ×2 (09:32→20:55)
[2020-05-11] MEDS: levoFLOXacin 750 MG/150 ML 750 MG/150 ML BAG IVPB SCH (11:34)
[2020-05-12 02:27] LABS: Basophils % 0.2 %; Eosinophils # 0.1 K/mcL (0.0-0.6); Eosinophils % 0.6 %; Hematocrit 26.6 % (35.3-44.9); Hemoglobin 8.2 g/dL (11.5-15.4); Immature Granulocytes % 2.4 % (0-4); Lymphocytes # 2.1 K/mcL (0.6-4.6); Lymphocytes % 16.2 %; Mean Corpuscular HGB Conc 30.8 g/dL (31.6-35.5); Mean Corpuscular Hemoglobin 30.7 pg (28.0-33.3); Mean Corpuscular Volume 99.6 fL (83.0-100.0); Mean Platelet Volume 9.1 fL (9.4-12.4); Monocytes # 1.6 K/mcL (0.0-1.3); Monocytes % 12.1 %; Platelet Count 386 K/mcL (140-400); Red Blood Count 2.67 M/mcL (3.82-4.97); Red Cell Distribution Width 15.8 % (11.5-14.5); Segmented Neutrophils % 68.5 %; White Blood Count 13.2 K/mcL (4.3-11.1)
[2020-05-12 02:45] LABS: BUN/Creatinine Ratio 24 (6-26); Blood Urea Nitrogen 16 mg/dL (8-23); Calcium 9.2 mg/dL (8.6-10.3); Carbon Dioxide 26 mEq/L (23-29); Chloride 103 mEq/L (98-107); Glucose 123 mg/dL (70-105); Osmolality,Calculated 285 (280-300); Potassium 4.4 mEq/L (3.5-5.1); Sodium 136 mEq/L (136-145); eGFR For African Americans > 60 (> 60); eGFR For Non-African Americans > 60 (> 60)
[2020-05-12] MEDS: Ipratropium/Albuterol Neb 3 ML IH SCH ×6 (04:18→23:59)
[2020-05-12] MEDS: Gabapentin 300 MG CAPSULE PO SCH ×2 (09:43→20:34)
[2020-05-12] MEDS: Multivit/Ca/Min/Fe/FA 1 TAB TABLET PO SCH (09:44)
[2020-05-12] MEDS: Apixaban 2.5 MG TABLET PO SCH ×2 (09:44→20:35)
[2020-05-12] MEDS: levoFLOXacin 750 MG/150 ML 750 MG/150 ML BAG IVPB SCH (09:45)
[2020-05-12] MEDS: predniSONE 20 MG TABLET PO SCH (09:48)
[2020-05-12] MEDS ORDERED: Furosemide 20 MG TABLET PO SCH (18:30)
[2020-05-12 19:02] LABS: Fluid Source for Albumin PLEURAL FLUID
[2020-05-13 01:13] LABS: Basophils % 0.3 %; Eosinophils # 0.1 K/mcL (0.0-0.6); Eosinophils % 0.3 %; Hematocrit 27.5 % (35.3-44.9); Hemoglobin 8.4 g/dL (11.5-15.4); Immature Granulocytes % 2.6 % (0-4); Lymphocytes # 2.3 K/mcL (0.6-4.6); Mean Corpuscular HGB Conc 30.5 g/dL (31.6-35.5); Mean Corpuscular Hemoglobin 30.2 pg (28.0-33.3); Mean Corpuscular Volume 98.9 fL (83.0-100.0); Mean Platelet Volume 8.6 fL (9.4-12.4); Monocytes # 1.6 K/mcL (0.0-1.3); Monocytes % 10.6 %; Neutrophils # 10.8 K/mcL (1.6-8.9); Platelet Count 410 K/mcL (140-400); Red Blood Count 2.78 M/mcL (3.82-4.97); Red Cell Distribution Width 15.9 % (11.5-14.5); Segmented Neutrophils % 71.2 %; White Blood Count 15.1 K/mcL (4.3-11.1)
[2020-05-13 01:31] LABS: BUN/Creatinine Ratio 26 (6-26); Blood Urea Nitrogen 19 mg/dL (8-23); Calcium 9.1 mg/dL (8.6-10.3); Carbon Dioxide 28 mEq/L (23-29); Chloride 104 mEq/L (98-107); Glucose 119 mg/dL (70-105); Osmolality,Calculated 291 (280-300); Potassium 4.5 mEq/L (3.5-5.1); Sodium 139 mEq/L (136-145); eGFR For African Americans > 60 (> 60); eGFR For Non-African Americans > 60 (> 60)
[2020-05-13] MEDS: Ipratropium/Albuterol Neb 3 ML IH SCH ×5 (03:55→20:04)
[2020-05-13] MEDS ORDERED: *HR* Enoxaparin 80 MG/0.8 ML SYRINGE SQ SCH (08:00)
[2020-05-13] MEDS ORDERED: Bumetanide 1 MG TABLET PO SCH (09:00)
[2020-05-13] MEDS: Multivit/Ca/Min/Fe/FA 1 TAB TABLET PO SCH (09:49)
[2020-05-13] MEDS: Gabapentin 300 MG CAPSULE PO SCH ×2 (09:50→19:57)
[2020-05-13] MEDS: predniSONE 20 MG TABLET PO SCH (09:50)
[2020-05-13] MEDS: levoFLOXacin 750 MG/150 ML 750 MG/150 ML BAG IVPB SCH (09:53)
[2020-05-13 13:13] LABS: Albumin 3.8 g/dL (3.5-5.7); Albumin/Globulin Ratio 1.3 (1.1-2.2); Globulin 2.9 g/dL (2.4-3.5); Total Protein 6.7 g/dL (6.4-8.9)
[2020-05-13 13:15] LABS: INR 1.4
[2020-05-13 13:17] LABS: Activated Partial Thrombo Time 32.8 Seconds (26.0-36.0)
[2020-05-13] MEDS ORDERED: *HR* Heparin 5,000 UNIT/ML VIAL IVP PRN ×2 (22:00)
[2020-05-13] MEDS ORDERED: Heparin 25,000UNIT/250ML 1/2NS 25,000 UNIT/250 ML IV.SOLN IVC SCH (22:00)
[2020-05-13] MEDS ORDERED: Ipratropium/Albuterol Neb 3 ML IH PRN (22:48)
[2020-05-14 06:01] LABS: INR 1.3; Prothrombin Time 14.4 Seconds (9.4-12.1)
[2020-05-14 06:10] LABS: Basophils # 0.1 K/mcL (0.0-0.2); Basophils % 0.3 %; Eosinophils % 0.1 %; Hematocrit 28.6 % (35.3-44.9); Hemoglobin 8.6 g/dL (11.5-15.4); Immature Granulocytes % 1.9 % (0-4); Lymphocytes # 2.5 K/mcL (0.6-4.6); Lymphocytes % 13.9 %; Mean Corpuscular HGB Conc 30.1 g/dL (31.6-35.5); Mean Corpuscular Hemoglobin 29.7 pg (28.0-33.3); Mean Corpuscular Volume 98.6 fL (83.0-100.0); Mean Platelet Volume 9.1 fL (9.4-12.4); Monocytes # 1.3 K/mcL (0.0-1.3); Monocytes % 7.4 %; Neutrophils # 13.8 K/mcL (1.6-8.9); Nucleated Red Blood Cells 0.3 /100 WBC (0); Platelet Count 465 K/mcL (140-400); Red Cell Distribution Width 15.9 % (11.5-14.5); Segmented Neutrophils % 76.4 %; White Blood Count 18.1 K/mcL (4.3-11.1)
[2020-05-14 06:16] LABS: Alanine Aminotransferase 63 Units/L (7-52); Albumin 3.4 g/dL (3.5-5.7); Albumin/Globulin Ratio 1.3 (1.1-2.2); Alkaline Phosphatase 88 Units/L (34-104); Aspartate Amino Transferase 33 Units/L (13-39); BUN/Creatinine Ratio 29 (6-26); Bilirubin,Total 0.5 mg/dL (0.3-1.0); Blood Urea Nitrogen 20 mg/dL (8-23); Calcium 9.3 mg/dL (8.6-10.3); Carbon Dioxide 25 mEq/L (23-29); Chloride 104 mEq/L (98-107); Globulin 2.6 g/dL (2.4-3.5); Glucose 105 mg/dL (70-105); Osmolality,Calculated 289 (280-300); Potassium 4.1 mEq/L (3.5-5.1); Sodium 138 mEq/L (136-145); eGFR For African Americans > 60 (> 60); eGFR For Non-African Americans > 60 (> 60)
[2020-05-14] MEDS ORDERED: Lidocaine -MPF 2% 2 ML VIAL ONE (09:08)
[2020-05-14] MEDS ORDERED: *HR* FentaNYL (PF) 100 MCG/2 ML VIAL ONE (09:08)
[2020-05-14] MEDS ORDERED: *HR* Propofol 200 MG/20 ML VIAL IVP ONE (09:08)
[2020-05-14] MEDS ORDERED: Ondansetron 4 MG/2 ML VIAL ONE (09:08)
[2020-05-14] MEDS ORDERED: *HR* Succinylcholine 200 MG/10 ML VIAL IVP ONE (09:08)
[2020-05-14] MEDS ORDERED: Dexamethasone 4 MG/ML VIAL ONE (09:08)
[2020-05-14] MEDS ORDERED: Lidocaine -MPF 4% 5 ML AMPUL ONE (09:08)
[2020-05-14] MEDS ORDERED: *HR* Midazolam HCl 2 MG/2 ML VIAL ONE (09:08)
[2020-05-14] MEDS ORDERED: *HR* FentaNYL (PF) 100 MCG/2 ML VIAL IVP PRN (09:59)
[2020-05-14] MEDS ORDERED: *HR* PHENYLEPHRINE 1,000 MCG/10 ML SYRINGE IVP ONE (10:07)
[2020-05-14] MEDS ORDERED: Lidocaine Viscous Oral Soln 15 ML SOLUTION MM ONE (10:11)
[2020-05-14] MEDS: levoFLOXacin 750 MG/150 ML 750 MG/150 ML BAG IVPB SCH (11:26)
[2020-05-14] MEDS: predniSONE 20 MG TABLET PO SCH (11:27)
[2020-05-14] MEDS: Multivit/Ca/Min/Fe/FA 1 TAB TABLET PO SCH (11:27)
[2020-05-14] MEDS: Gabapentin 300 MG CAPSULE PO SCH ×2 (11:27→22:08)
[2020-05-14 17:53] LABS: Appearance of Body Fluid Clear (Clear); Volume of Body Fluid 9 mL
[2020-05-14] MEDS: Ringers Solution, Lactated 1,000 ML IVC SCH (18:35)
[2020-05-14] MEDS: Apixaban 5 MG TABLET PO SCH (22:08)
[2020-05-14] MEDS: *HR* HYDROcodone/Acet 5/325 mg TABLET PO PRN (22:13)
[2020-05-14] MEDS: Ondansetron 4 MG/2 ML VIAL IVP PRN (22:13)
[2020-05-15 01:52] LABS: Basophils % 0.2 %; Hematocrit 28.4 % (35.3-44.9); Hemoglobin 8.6 g/dL (11.5-15.4); Immature Granulocytes % 1.8 % (0-4); Lymphocytes # 1.9 K/mcL (0.6-4.6); Mean Corpuscular HGB Conc 30.3 g/dL (31.6-35.5); Mean Corpuscular Hemoglobin 30.5 pg (28.0-33.3); Mean Corpuscular Volume 100.7 fL (83.0-100.0); Mean Platelet Volume 8.6 fL (9.4-12.4); Monocytes # 1.2 K/mcL (0.0-1.3); Monocytes % 7.1 %; Neutrophils # 13.6 K/mcL (1.6-8.9); Nucleated Red Blood Cells 0.2 /100 WBC (0); Platelet Count 479 K/mcL (140-400); Red Blood Count 2.82 M/mcL (3.82-4.97); Red Cell Distribution Width 15.9 % (11.5-14.5); Segmented Neutrophils % 79.9 %
[2020-05-15 02:09] LABS: BUN/Creatinine Ratio 40 (6-26); Blood Urea Nitrogen 30 mg/dL (8-23); Calcium 8.9 mg/dL (8.6-10.3); Carbon Dioxide 24 mEq/L (23-29); Chloride 105 mEq/L (98-107); Glucose 114 mg/dL (70-105); Osmolality,Calculated 291 (280-300); Potassium 4.8 mEq/L (3.5-5.1); Sodium 137 mEq/L (136-145); eGFR For African Americans > 60 (> 60); eGFR For Non-African Americans > 60 (> 60)
[2020-05-15] MEDS: Apixaban 5 MG TABLET PO SCH ×2 (09:50→21:24)
[2020-05-15] MEDS: predniSONE 20 MG TABLET PO SCH (09:51)
[2020-05-15] MEDS: Multivit/Ca/Min/Fe/FA 1 TAB TABLET PO SCH (09:51)
[2020-05-15] MEDS: Gabapentin 300 MG CAPSULE PO SCH ×2 (09:52→21:23)
[2020-05-15] MEDS: levoFLOXacin 750 MG/150 ML 750 MG/150 ML BAG IVPB SCH (09:58)
[2020-05-15] MEDS ORDERED: 0.9 % Sodium Chloride 500 ML IVC SCH (11:00)
[2020-05-15] MEDS: Ringers Solution, Lactated 1,000 ML IVC SCH (11:42)
[2020-05-16 00:53] LABS: Basophils # 0.1 K/mcL (0.0-0.2); Basophils % 0.3 %; Hematocrit 28.8 % (35.3-44.9); Hemoglobin 8.5 g/dL (11.5-15.4); Immature Granulocytes % 1.6 % (0-4); Lymphocytes % 11.1 %; Mean Corpuscular HGB Conc 29.5 g/dL (31.6-35.5); Mean Corpuscular Hemoglobin 29.5 pg (28.0-33.3); Mean Platelet Volume 8.6 fL (9.4-12.4); Monocytes # 1.1 K/mcL (0.0-1.3); Monocytes % 6.1 %; Neutrophils # 14.8 K/mcL (1.6-8.9); Nucleated Red Blood Cells 0.2 /100 WBC (0); Platelet Count 529 K/mcL (140-400); Red Blood Count 2.88 M/mcL (3.82-4.97); Red Cell Distribution Width 16.1 % (11.5-14.5); Segmented Neutrophils % 80.9 %; White Blood Count 18.3 K/mcL (4.3-11.1)
[2020-05-16 01:17] LABS: BUN/Creatinine Ratio 41 (6-26); Blood Urea Nitrogen 29 mg/dL (8-23); Calcium 9.2 mg/dL (8.6-10.3); Carbon Dioxide 22 mEq/L (23-29); Chloride 106 mEq/L (98-107); Glucose 124 mg/dL (70-105); Osmolality,Calculated 293 (280-300); Potassium 4.6 mEq/L (3.5-5.1); Sodium 138 mEq/L (136-145); eGFR For African Americans > 60 (> 60); eGFR For Non-African Americans > 60 (> 60)
[2020-05-16] MEDS ORDERED: predniSONE 20 MG TABLET PO SCH (09:00)
[2020-05-16] MEDS: Gabapentin 300 MG CAPSULE PO SCH (09:26)
[2020-05-16] MEDS: Multivit/Ca/Min/Fe/FA 1 TAB TABLET PO SCH (09:27)
[2020-05-16] MEDS: Apixaban 5 MG TABLET PO SCH (09:27)
[2020-05-16] MEDS: levoFLOXacin 750 MG/150 ML 750 MG/150 ML BAG IVPB SCH (09:28)
[2020-05-16 11:10] VITALS: BP 107/56
[2020-05-28] MEDS ORDERED: Cyanocobalamin (B-12) 1,000 MCG/ML VIAL IM SCH (09:00)
== END 2020-05-16 12:28 | disposition home or self-care (01) | DRG 193 ==
LOC: 2ANU 10:20 → EMEROOARM 10:20 → SUATTDRO 13:24 → 2ANU 14:18 → SUATTDRO 05-11 14:13
PROVIDERS: ADMIT General Practice; ATTEND Internal Medicine